=== PATIENT | female | born 1945 | race Caucasian/White ===

== ENCOUNTER 2022-05-16 07:35 | Emergency (ER) | payer MEDICARE, BC, SELFPAY ==
[2022-05-16 07:43] VITALS: BP 118/79; PULSE 98; RESP 17; TEMP 36.4; O2SAT 92; BMI 23.3
--- NOTE | 2022-05-16 07:50 | W.ED.FEMALGU ---
HPI - Female Genitourinary General: Chief complaint: Urogenital-Female Stated complaint: UTI Time Seen by Provider: 05/16/22 07:37 History of Present Illness: 77-year-old female presents to the emergency room department chief complaint of difficulty with urinating. Patient reports that she just got out of the hospital recently for COPD exacerbation low blood pressure. The patient reports having a prior history of urinary tract infections and reports that she did require Blackwell catheter during her admission which was removed upon discharge. Patient has no pre-existing history of any heart issues she is written for Lasix daily patient reports significant sensation of fullness to her bladder and unable to void urine. The patient does not recall any recent UTIs any other associated symptoms. Patient was found to have over a liter and a half urine Blackwell catheter was placed clear urine expressed no obvious underlying UTI appreciated patient was found to be hypokalemic with a potassium of 2.8 she was given 40 mill equivalents of KCl in the emergency department she is on chronic Lasix use at at this time I see no reason that the patient cannot be discharged home patient is requesting be discharged home as well advised she probably follow-up outpatient with her primary care doctor in 2 to 4 days to repeat potassium level as well as for further Blackwell maintenance and care patient was advised to return the interim if any of her symptoms persist or worse. Associated symptoms: Reports abdominal pain; Deny headache(s) Review of Systems General: Reports: 10 or more systems reviewed and unremarkable except in HPI and below Const: Denies: fever(s), chills, fatigue or malaise Eyes: Denies: change in vision or blurry vision Card: Denies: chest pain or palpitations Resp: Denies: dyspnea or productive cough GI: Reports: abdominal pain : Reports: difficulty voiding, urinary frequency, urinary hesitancy and oliguria Musc: Denies: extremity pain or extremity swelling Skin/Breast: Denies: rash or pruritus Neuro: Denies: headache(s) Psych: Denies: anxiety or depression Jonathan/Lymph: Denies: easy bleeding All/Imm: Denies: urticaria, throat swelling or facial swelling PFS ED PFSH: Social History Smoking and tobacco status: current every day smoker Alcohol intake: never Physical Exam Const: COMMON NORMALS: patient oriented x3 and healthy appearing; apparent distress (In mild discomfort due to pain) HENMT: COMMON NORMALS: normocephalic and atraumatic HEAD & SCALP: normocephalic and atraumatic Eye: COMMON NORMALS: Equal, round and reactive pupils present and EOMs intact bilaterally PUPIL: Yes Equal, round and reactive pupils present Neck/C-Spine: COMMON NORMALS: full ROM, supple and no JVD Lymph: LYMPHATIC: no lymphadenopathy noted Chest: COMMONS NORMALS: normal inspection of the chest and normal palpation of entire chest wall Resp: COMMON NORMALS: normal respiratory effort, No retractions and clear to auscultation bilaterally EFFORT & INSPECTION: Yes able to speak in complete sentences and Yes symmetric chest movement AUSCULTATION: clear to auscultation bilaterally Cardio: COMMON NORMALS: no JVD, regular rate and regular rhythm RATE: regular rate RHYTHM: regular rhythm GI: OTHER: Moderate suprapubic abdominal pain with mild distention appreciated otherwise soft nontender no flank pain appreciated : COMMON NORMALS: Yes no CVA tenderness BLADDER/KIDNEY EXAM: Yes no CVA tenderness Back/Pelvis: COMMON NORMALS: no CVA tenderness Extremity: COMMON NORMALS: normal to inspection and full ROM Neuro: COMMON NORMALS: patient oriented x3, CN's II-XII intact bilaterally, moves all extremities and no focal motor deficits Psych: COMMON NORMALS: mental status grossly normal, Normal thought process present, cooperative and normal affect THOUGHT PROCESS: Normal thought process present Skin: COMMON NORMALS: no rashes or lesions noted GENERAL SKIN EXAM: no rashes or lesions noted Course Vital Signs: Vital signs: Vital Signs Temperature 97.6 F 05/16/22 07:43 Pulse Rate 98 05/16/22 07:43 Respiratory Rate 17 05/16/22 07:43 Blood Pressure 118/79 05/16/22 07:43 Pulse Oximetry 92 05/16/22 07:43 Oxygen Delivery Me thod 05/16/22 07:43 Oxygen Flow Rate 5 05/16/22 07:43 MDM - Female Medical Decision Making Due to the patient's significant him bladder scan will be obtained to reveal how much retention of urine if indicated a Blackwell catheter will be placed with basic lab work obtained we will continue to follow to further rule out underlying renal impairment or secondary infection. Lab Data 05/16/22 09:00 05/16/22 09:00 Laboratory Results WBC 10.9 10^3/uL (4.0-10.0) H 05/16/22 09:00 RBC 3.89 10^6/uL (4.1-5.3) L 05/16/22 09:00 Hgb 10.8 g/dL (11.5-15.3) L 05/16/22 09:00 Hct 34.6 % (37.0-47.0) L 05/16/22 09:00 MCV 88.9 fl (81-99) 05/16/22 09:00 MCH 27.8 pg (28.0-34.0) L 05/16/22 09:00 MCHC 31.2 g/dL (30.0-36.0) 05/16/22 09:00 RDW 13.6 % (12.1-15.1) 05/16/22 09:00 Plt Count 447 10^3/cmm (130-400) H 05/16/22 09:00 MPV 9.7 fL (7.4-10.4) 05/16/22 09:00 Neut % (Auto) 79.9 % 05/16/22 09:00 Lymph % (Auto) 8.4 % 05/16/22 09:00 [place] % (Auto) 5.2 % 05/16/22 09:00 Eos % (Auto) 1.9 % 05/16/22 09:00 Baso % (Auto) 0.4 % 05/16/22 09:00 Neut # (Auto) 8.68 10^3/uL (1.8-7.7) H 05/16/22 09:00 Lymph # (Auto) 0.9 10^3/uL (0.8-4.8) 05/16/22 09:00 [place] # (Auto) 0.6 10^3/uL (0.2-0.9) 05/16/22 09:00 Eos # (Auto) 0.2 10^3/uL (0.0-0.8) 05/16/22 09:00 Baso # (Auto) 0.0 10^3/uL (0.0-0.1) 05/16/22 09:00 Nucleated RBC % (auto) 0.5 % 05/16/22 09:00 Nucleated RBCs # 0.1 /100WBC 05/16/22 09:00 Sodium 130 mmol/L (136-145) L 05/16/22 09:00 Potassium 2.8 mmol/L (3.5-5.1) L* 05/16/22 09:00 Chloride 85 mmol/L (98-107) L 05/16/22 09:00 Carbon Dioxide 31 mmol/L (22-29) H 05/16/22 09:00 Anion Gap 16.8 (5-19) 05/16/22 09:00 BUN 7 mg/dL (8-23) L 05/16/22 09:00 Creatinine 0.4 mg/dL (0.5-0.9) L 05/16/22 09:00 GFR Calculation Not Reportable 05/16/22 09:00 Glucose 106 mg/dL (65-115) 05/16/22 09:00 Calculated Osmolality 268 mOsm/kg (285-295) L 05/16/22 09:00 Calcium 9.5 mg/dL (8.5-10.5) 05/16/22 09:00 Urine Color Straw (Yellow) 05/16/22 08:45 Urine Appearance Clear (CLEAR) 05/16/22 08:45 Urine pH 7 (5-7) 05/16/22 08:45 Ur Specific Mark 1.005 (1.005-1.030) 05/16/22 08:45 Urine Protein Neg (Negative) 05/16/22 08:45 Urine Glucose (UA) Norm (Normal) 05/16/22 08:45 Urine Ketones Negative (Negative) 05/16/22 08:45 Urine Blood Neg (Negative) 05/16/22 08:45 Urine Nitrate Negative (Negative) 05/16/22 08:45 Urine Bilirubin Neg (Negative) 05/16/22 08:45 Urine Urobilinogen Neg mg/dL (Negative) 05/16/22 08:45 Ur Leukocyte Esterase Negative (Negative) 05/16/22 08:45 Discharge Plan Discharge Patient Disposition: Home Clinical Impression: Acute urinary retention, Hypokalemia Condition: Stable Prescriptions: [place]-Con 10 10 mEq tablet extended release 10 meq PO DAILY Qty: 4 0RF No Action furosemide [Lasix] 40 mg tablet 40 mg PO DAILY meclizine 25 mg tablet 25 mg PO DAILY omeprazole 40 mg capsule,delayed release(DR/EC) 40 mg PO DAILY fluoxetine [Prozac] 20 mg capsule 20 mg PO DAILY levothyroxine 75 mcg capsule 75 mcg PO DAILY [id number] [Fiorinal] 50-325-40 mg capsule 1 cap PO Q6H PRN hydrocodone-acetaminophen 10-325 mg tablet 1 tab PO BID PRN promethazine 25 mg tablet 25 mg PO TID PRN Discharge Orders: Discharge ED (Routine); Ordered 05/16/22 Ordered By: Elio Barrett Referrals: Junior Navarro DO [Primary Care Provider] - 1-3 days Discharge Diet: Usual diet Discharge Activity: Resume usual activity Patient Instructions: Blackwell Catheter Care, Hypokalemia (ED), Blackwell Catheter Placement and Care (ED), Acute Urinary Retention in Women (ED), How to Change a Catheter Drainage Bag (DC) Activity Restrictions/Additional Instructions: Please follow-up with your primary care doctor in 2 to 4 days, take medication as prescribed adhere to the Blackwell catheter care paperwork provided to you please return the interim if any of your symptoms persist or worse. Coding Level of Care Code ED Route Process Administrator for Emeritag Fwd Exam Comprehensive
[2022-05-16 08:52] LABS: Add Urine Microscopic? NO; Charge for UA Resulting for Rev
[2022-05-16 09:03] LABS: Basophils % 0.4 %; Eosinophils # 0.2 10^3/uL (0.0-0.8); Eosinophils % 1.9 %; Hematocrit 34.6 % (37.0-47.0); Hemoglobin 10.8 g/dL (11.5-15.3); Lymphocytes # 0.9 10^3/uL (0.8-4.8); Lymphocytes % 8.4 %; Mean Corpuscular HGB Conc 31.2 g/dL (30.0-36.0); Mean Corpuscular Hemoglobin 27.8 pg (28.0-34.0); Mean Corpuscular Volume 88.9 fl (81-99); Mean Platelet Volume 9.7 fL (7.4-10.4); Monocytes # 0.6 10^3/uL (0.2-0.9); Monocytes % 5.2 %; Neutrophils # 8.68 10^3/uL (1.8-7.7); Neutrophils % 79.9 %; Nucleated Red Blood Cells # 0.1 /100WBC; Nucleated Red Blood Cells % 0.5 %; Platelet Count 447 10^3/cmm (130-400); Red Blood Count 3.89 10^6/uL (4.1-5.3); Red Cell Distribution Width 13.6 % (12.1-15.1); White Blood Count 10.9 10^3/uL (4.0-10.0)
[2022-05-16 09:30] LABS: Anion Gap 16.8 (5-19); Blood Urea Nitrogen 7 mg/dL (8-23); Calcium 9.5 mg/dL (8.5-10.5); Carbon Dioxide 31 mmol/L (22-29); Chloride 85 mmol/L (98-107); Glucose 106 mg/dL (65-115); Osmolality Calculated 268 mOsm/kg (285-295); Sodium 130 mmol/L (136-145)
[2022-05-16 09:32] LABS: Potassium 2.8 mmol/L (3.5-5.1)
[2022-05-16 09:36] LABS: Bilirubin Urine Neg (Negative); Blood Urine Neg (Negative); Glucose Urine UA Norm (Normal); Ketones Urine Negative (Negative); Leukocyte Esterase Urine Negative (Negative); Nitrate Urine Negative (Negative); Protein Urine Neg (Negative); Specific Gravity, Urine 1.005 (1.005-1.030); Urine Appearance Clear (CLEAR); Urine Color Straw (Yellow); Urobilinogen Urine Neg (Negative); pH Urine 7 (5-7)
[2022-05-16] MEDS: potassium chloride ER 20 mEq Tablet 40 MEQ PO (10:00)
[2022-05-16 10:48] VITALS: BP 110/80; PULSE 84; RESP 17; O2SAT 93
== END 2022-05-16 11:28 | disposition home or self-care (01) ==
PROVIDERS: Emergency Provider Emergency Medicine; PCP Internal Medicine
DX: R33.9 Retention of urine, unspecified (principal); E87.6 Hypokalemia; Z87.440 Personal history of urinary (tract) infections
CPT/HCPCS: 36415; 51702; 51798; 80048; 81003; 85025; 99283